=== PATIENT | female | born 1995 | race Caucasian/White ===

== ENCOUNTER 2023-12-14 13:10 | Emergency (ER) | payer OTHER ==
[2023-12-14 13:28] VITALS: BP 120/80; PULSE 87; RESP 18; TEMP 99.2; BMI 27.4
[2023-12-14 14:50] LABS: PH,URINE 5.5 (5.0-8.0); URINE APPEARANCE CLEAR; URINE BILIRUBIN NEGATIVE (NEGATIVE); URINE COLOR DK YELLOW; URINE GLUCOSE (UA) NEGATIVE (NEGATIVE); URINE KETONE TRACE (NEGATIVE); URINE LEUK ESTERASE NEGATIVE (NEGATIVE); URINE NITRITE NEGATIVE (NEGATIVE); URINE PROTEIN NEGATIVE (NEGATIVE); URINE UROBILINOGEN 0.2 mg/dL (0.2-1.0)
[2023-12-14 14:52] LABS: HCG,QUALITATIVE URINE Negative
[2023-12-14 15:12] LABS: EPI CELLS 18 /uL (0-25.1); HYALINE CASTS 1 /uL (0-3.1); URINE BACTERIA 19 /uL (0-1359); URINE RBC 20 /uL (0-23.9); URINE WBC 8 /uL (0-25.8)
[2023-12-14] MEDS: ACETAMINOPHEN 1000 MG/100 ML BAG IVPB ONE (15:14)
[2023-12-14 15:15] LABS: BASO % 0.5 % (0-2.0); EOS % 0.3 % (0-4.5); HEMATOCRIT 42.8 % (32.4-45.2); HEMOGLOBIN 14.7 GM/dL (10.7-15.3); LYMPH % 20.4 % (8-40); MCH 30.1 pg (25.7-33.7); MCHC 34.4 g/dl (32.0-36.0); MEAN CELL VOLUME 87.5 fl (80-96); MEAN PLT VOLUME 7.5 fl (7.5-11.1); MONO % 5.8 % (3.8-10.2); PLATELET COUNT 349 10^3/uL (134-434); RBC 4.89 M/mm3 (3.60-5.2); RDW 12.9 % (11.6-15.6); WHITE BLOOD COUNT 11.4 K/mm3 (4.0-10.0)
[2023-12-14 15:35] LABS: POTASSIUM 3.8 mmol/L (3.5-5.1)
[2023-12-14 15:38] LABS: BLOOD UREA NITROGEN 9.6 mg/dL (7-18); CALCIUM 9.9 mg/dL (8.5-10.1)
[2023-12-14 15:39] LABS: ALBUMIN 3.9 g/dl (3.4-5.0)
[2023-12-14 15:41] LABS: CREATININE 0.8 mg/dL (0.55-1.3)
[2023-12-14 15:43] LABS: BILIRUBIN,TOTAL 0.3 mg/dL (0.2-1); TOT PROT 8.1 g/dl (6.4-8.2)
== END 2023-12-14 17:12 | disposition home or self-care (01) ==
LOC: JER 13:10
PROC: 3E030NZ Introduction of Analgesics, Hypnotics, Sedatives into Peripheral Vein, Open Approach (ICD-10-PCS; principal; 2023-12-14)
DX: R10.30 Lower abdominal pain, unspecified (principal); R11.2 Nausea with vomiting, unspecified; R35.0 Frequency of micturition
CPT/HCPCS: 36415; 80053; 81003; 84702; 84703; 85025; 86850; 86900; 86901; 99284-25; J0131

== ENCOUNTER 2025-02-10 11:02 | Emergency (ER) | payer OTHER ==
[2025-02-10 11:13] VITALS: BP 130/76; PULSE 92; RESP 20; TEMP 98; BMI 32.8
[2025-02-10 12:41] LABS: PH,URINE 5.5 (5.0-8.0); URINE BILIRUBIN NEGATIVE (NEGATIVE); URINE COLOR YELLOW; URINE GLUCOSE (UA) NEGATIVE (NEGATIVE); URINE KETONE NEGATIVE (NEGATIVE); URINE LEUK ESTERASE NEGATIVE (NEGATIVE); URINE NITRITE NEGATIVE (NEGATIVE); URINE PROTEIN NEGATIVE (NEGATIVE); URINE UROBILINOGEN 0.2 mg/dL (0.2-1.0)
[2025-02-10 13:38] LABS: URINE APPEARANCE CLEAR
== END 2025-02-10 15:50 | disposition home or self-care (01) ==
LOC: JER 11:02
DX: N83.201 Unspecified ovarian cyst, right side (principal); R10.2 Pelvic and perineal pain; N64.4 Mastodynia
CPT/HCPCS: 76830-TC; 81003; 84703; 87086; 99284-25